=== PATIENT | female | born 1955 | race Caucasian/White ===

== ENCOUNTER → 2024-02-29 14:42 | Outpatient (REF) | payer MEDICARE, OTHER, SELFPAY | LOC: HWRAD 14:42 | PROVIDERS: ATTENDING PHYSICIAN Allergy & Immunology; FAMILY PHYSICIAN Nurse Practitioner Family | DX: J32.9 Chronic sinusitis, unspecified (principal) | CPT/HCPCS: 70486 ==

== ENCOUNTER → 2024-03-14 09:15 | Outpatient (REF) | payer MEDICARE, OTHER, SELFPAY | LOC: HWRAD 09:15 | PROVIDERS: ATTENDING PHYSICIAN Specialist; FAMILY PHYSICIAN Nurse Practitioner Family | DX: R10.13 Epigastric pain (principal) | CPT/HCPCS: 76700 ==

== ENCOUNTER 2024-08-19 06:17 | Day surgery (SDC) | payer MEDICARE, OTHER, SELFPAY ==
[2024-08-19 08:03] LABS: Glucose - Point of Care 179 mg/dl (70-99)
== END 2024-08-19 10:01 | disposition home or self-care (01) ==
LOC: GI 06:17
PROVIDERS: ATTENDING PHYSICIAN Specialist
DX: Z12.11 Encounter for screening for malignant neoplasm of colon (principal); K57.30 Diverticulosis of large intestine without perforation or abscess without bleeding; R10.13 Epigastric pain; K31.7 Polyp of stomach and duodenum; D12.3 Benign neoplasm of transverse colon; K62.1 Rectal polyp; Z86.0101 Personal history of adenomatous and serrated colon polyps
CPT/HCPCS: 45380; 45385; 43239; 88305; 82962; 88342

== ENCOUNTER → 2024-09-26 15:22 | Outpatient (REF) | payer MEDICARE, OTHER, SELFPAY | LOC: HWWDC 15:22 | PROVIDERS: ATTENDING PHYSICIAN Nurse Practitioner Family | DX: Z12.31 Encounter for screening mammogram for malignant neoplasm of breast (principal) | CPT/HCPCS: 77063; 77067 ==

== ENCOUNTER → 2024-10-08 13:46 | Outpatient (REF) | payer MEDICARE, OTHER, SELFPAY | LOC: HWRAD 13:46 | PROVIDERS: ATTENDING PHYSICIAN Nurse Practitioner Family | DX: M85.89 Other specified disorders of bone density and structure, multiple sites (principal) | CPT/HCPCS: 77080 ==